=== PATIENT | female | born 1975 | race Two or more races ===

== ENCOUNTER 2021-06-30 13:55 | Emergency (ER) | payer BC ==
[2021-06-30] MEDS ORDERED: ONDANSETRON 4 MG/2 ML VIAL IVPUSH ONE (14:11)
[2021-06-30] MEDS ORDERED: FAMOTIDINE 20 MG/50 ML IVPB 20 MG/50 ML MG IVPB ONE ×2 (14:11→14:25)
[2021-06-30] MEDS ORDERED: SODIUM CHLORIDE 0.9% 1000 ML INFUS.BAG IV ONE (14:11)
[2021-06-30 14:14] VITALS: BMI 30.7
[2021-06-30] MEDS ORDERED: ONDANSETRON 4 MG/2 ML VIAL ONE (14:25)
[2021-06-30] MEDS ORDERED: FLUORESCEIN NA 1 EA STRIP ONE (14:42)
[2021-06-30] MEDS ORDERED: TETRACAINE 0.5% OPHTH SOLN 2 ML BOTTLE ONE (14:42)
[2021-06-30 14:45] LABS: EPITHELIAL CELLS MODERATE /hpf
[2021-06-30 14:58] LABS: HEMOGLOBIN 14.3 GM/dl (10.7-15.3)
[2021-06-30 15:02] LABS: MEAN PLT VOLUME 7.9 fl (7.5-11.1)
[2021-06-30 15:05] LABS: BASO % 4.8 % (0-2.0); EOS % 0.2 % (0-4.5); LYMPH % 14.7 % (8-40); MEAN CELL VOLUME 91.2 fl (80-96); MONO % 3.2 % (3.8-10.2); NEUT % 77.1 % (42.8-82.8); PLATELET COUNT 392 10^3/uL (134-434); RBC 4.61 M/mm3 (3.60-5.2); WHITE BLOOD COUNT 9.2 K/mm3 (4.0-10.8)
[2021-06-30 15:06] LABS: ALBUMIN 4.2 g/dl (3.4-5.0); BILIRUBIN,TOTAL 0.9 mg/dl (0.2-1); CREATININE 0.7 mg/dl (0.55-1.3); TOT PROT 7.3 g/dl (6.4-8.2)
[2021-06-30 15:53] VITALS: BP 120/84; PULSE 69; TEMP 98.1
== END 2021-06-30 16:06 | disposition home or self-care (01) ==
LOC: FER 13:55
PROC: 3E033GC Introduction of Other Therapeutic Substance into Peripheral Vein, Percutaneous Approach (ICD-10-PCS; principal; 2021-06-30)
PROC: 3E033GC Introduction of Other Therapeutic Substance into Peripheral Vein, Percutaneous Approach (ICD-10-PCS; 2021-06-30)
PROC: 3E033GC Introduction of Other Therapeutic Substance into Peripheral Vein, Percutaneous Approach (ICD-10-PCS; 2021-06-30)
DX: K29.70 Gastritis, unspecified, without bleeding (principal)
CPT/HCPCS: 36415; 80053; 81003; 81015; 83690; 85025; 99284-25; C9803; U0003; U0005